=== PATIENT | female | born 1965 | race Caucasian/White ===

== ENCOUNTER 2019-07-30 10:27 | Outpatient (CLI) | payer OTHER, SELFPAY ==
[2019-07-30 10:39] LABS: Basophils Absolute Auto 0.04 K/mm3 (0.00-0.10); Basophils Percent Auto 0.6 % (0.0-1.0); Eosinophils Absolute Auto 0.25 K/mm3 (0.02-0.50); Eosinophils Percent Auto 3.6 % (1.0-6.0); Hematocrit 39.7 % (35.0-49.0); Hemoglobin 12.9 g/dL (12.0-15.0); Immature Granulocyte Absolute 0.02 K/mm3 (0.00-0.00); Immature Granulocyte Percent A 0.3 % (0.0-0.0); Lymphocytes Absolute Auto 1.59 K/mm3 (1.10-4.50); Lymphocytes Percent Auto 23.2 % (18.0-42.0); Mean Corpuscular HGB Conc 32.5 g/dL (32.0-36.0); Mean Corpuscular Hemoglobin 27.7 pg (27.0-31.0); Mean Corpuscular Volume 85.2 fL (78.0-102.0); Mean Platelet Volume 9.2 fl (9.2-11.8); Monocytes Absolute Auto 0.47 K/mm3 (0.10-0.90); Monocytes Percent Auto 6.9 % (2.0-11.0); Neutrophils Absolute Auto 4.5 K/mm3 (1.7-7.2); Neutrophils Percent Auto 65.4 % (50.0-70.0); Platelet Count Result 386 K/mm3 (150-420); Red Blood Count 4.66 M/mm3 (4.20-5.40); Red Cell Distribution Width 14.8 % (11.6-14.4); White Blood Count 6.9 K/mm3 (4.8-10.8)
[2019-07-30 11:31] LABS: Alanine Aminotransferase 54 U/L (14-59); Albumin Level 4.6 g/dL (3.4-5.0); Alkaline Phosphatase 190 U/L (46-116); Anion Gap 16.9 mmol/L (7-16); Aspartate Amino Transferase 38 U/L (15-37); Bilirubin,Total 0.5 mg/dL (0.00-1.00); Blood Urea Nitrogen 23 mg/dL (7-18); Calcium 9.3 mg/dL (8.5-10.1); Carbon Dioxide 23 mmol/L (21-32); Chloride 105 mmol/L (98-108); Cholesterol 178 mg/dL (0-200); Estimated Glomerular Filt Rate 43; Glucose 102 mg/dL (70-99); HDL Direct 58 mg/dL (40-60); LDL Cholesterol Calculated 93 mg/dL (<130); Osmolality Calculated 295 mOsm/kg (285-295); Potassium 3.9 mmol/L (3.5-5.1); Sodium 141 mmol/L (136-145); Total Protein 7.8 g/dL (6.4-8.2); Triglycerides 135 mg/dL (0-150)
[2019-07-30 12:37] LABS: Thyroid Stimulating Hormone Reflex 1.82 u/IU/mL (0.36-3.74)
[2019-08-04 04:48] LABS: Hepatitis C Signal to Cutoff 0.01 ratio (<1.00); Hepatitis C Virus Antibody Nonreactive (Nonreactive)
== END 2019-07-30 10:28 | disposition home or self-care (01) ==
LOC: CHSLAB 10:30
PROVIDERS: PCP Family Medicine; Visit Provider Family Medicine
DX: E78.5 Hyperlipidemia, unspecified (principal); E66.9 Obesity, unspecified; Z11.59 Encounter for screening for other viral diseases; F31.9 Bipolar disorder, unspecified
CPT/HCPCS: 36415; 80053; 80061; 84443; 85025

== ENCOUNTER 2020-09-12 12:17 | Outpatient (CLI) | payer OTHER, SELFPAY ==
--- NOTE | ~2020-09-12 | MM_ITS ---
EXAMINATION: MM screening [place] BI w luc HISTORY: Screening mammogram TECHNIQUE: Craniocaudal and mediolateral oblique 3-D tomosynthesis images were obtained and synthetic 2-D images were generated. CAD analysis was submitted and interpreted. COMPARISON: 05/06/2019, 04/08/2018 bilateral digital screening mammogram BREAST PARENCHYMAL COMPOSITION: There are scattered areas of fibroglandular density. FINDINGS: There are bilateral breast masses. Bilateral diagnostic mammography and bilateral breast ul trasound examination are recommended. IMPRESSION: 1. Bilateral breast masses 2. Bilateral diagnostic mammography and bilateral breast ultrasound examination are recommended BI-RADS Category 0: Incomplete: Needs additional imaging evaluation. Reviewed, dictated and finalized at location A.
== END 2020-09-12 12:18 | disposition home or self-care (01) ==
LOC: CHSIMG 12:18
PROVIDERS: PCP Nurse Practitioner Family; Visit Provider Nurse Practitioner Family
DX: Z12.31 Encounter for screening mammogram for malignant neoplasm of breast (principal)
CPT/HCPCS: 77063; 77067

== ENCOUNTER 2020-09-21 10:04 | Outpatient (CLI) | payer OTHER, SELFPAY ==
--- NOTE | ~2020-09-21 | MMUS_ITS ---
EXAMINATION: MM diagnostic mammo BI, US breast BI complete HISTORY: Bilateral breast masses reported on 09/12/2020 screening mammogram TECHNIQUE: Additional 3-D tomosynthesis images of both breasts were performed and synthetic 2-D image s were generated. CAD analysis was submitted and interpreted. High resolution complete bilateral [address]lyss[address] st ultrasound was performed. COMPARISON: 09/12/2020, 05/06/2019 bilateral digital screening mammogram examinations FINDINGS: MAMMOGRAPHIC FINDINGS: There is bilateral nodular appearing fibroglandular stroma which may obscure small masses. There are bilateral breast masses including the following: Stable approximately 7 mm nodular density in the lower inner quadrant of left breast with adjacent bi opsy marker; history of prior benign left breast biopsy given by patient. 6 mm circumscribed mass in the mid outer left breast 5 mm circumscribed opacity is noted in the outer mid right breast. 5-6 mm nodular density in the anterior right lower inner breast. ULTRASOUND: Right breast: 1:00 5 cm from nipple: 2.9 x 4 x 3.9 mm circumscribed hypoechoic lesion with central fatty density, l ikely a small intramammary lymph node 5:00 2 cm from nipple: 3.3 x 4.9 x 6.3 mm circumscribed parallel lesion without suspicious shadowing 9:00 8 cm from nipple: 5.9 x 3.8 x 5.9 mm circumscribed hypoechoic lesion with central fatty density, likely a benign intramammary lymph node Left breast: 12:00 2 cm from nipple: 6.3 by 7.6 x 3.5 mm circumscribed lesion with central fatty density, likely a benign intramammary lymph node 1:00 12 cm from nipple: 4.7 x 5.2 x 7 mm circumscribed lymph node 3:00 3 cm from nipple: 4.6 x 5.1 x 5.7 mm circumscribed hypoechoic lesion without internal vascularit y or posterior features 4:00 2 cm from nipple: 3.1 x 2.6 x 2.8 mm circumscribed parallel lesion, probably a benign lymph node 8:00 6 cm from nipple: 6.3 x 6.5 x 7.5 mm circumscribed hypoechoic solid lesion with some edge shadow ing, no internal vascularity IMPRESSION: 1. Probable benign bilateral breast masses 2. 6 month bilateral diagnostic mammography and bilateral breast ultrasound follow-up is recommended BI-RADS category 3, probably benign findings. Reviewed, dictated and finalized at location A. IMPRESSION: 1. Probable benign bilateral breast masses 2. 6 month bilateral diagnostic mammography and bilateral breast ultrasound fol low-up is recommended BI-RADS category 3, probably benign findings.
== END 2020-09-21 10:05 | disposition home or self-care (01) ==
LOC: CHSIMG 10:06
PROVIDERS: PCP Nurse Practitioner Family; Visit Provider Nurse Practitioner Family
DX: R92.8 Other abnormal and inconclusive findings on diagnostic imaging of breast (principal)
CPT/HCPCS: 76641; 77066

== ENCOUNTER 2021-06-12 15:04 | Outpatient (CLI) | payer OTHER, SELFPAY ==
[2021-06-12 16:40] LABS: Hemoglobin A1C 12.1 % (<5.7)
[2021-06-12 17:05] LABS: Alanine Aminotransferase 56 U/L (14-59); Albumin Level 3.9 g/dL (3.4-5.0); Alkaline Phosphatase 226 U/L (46-116); Anion Gap 15 mmol/L (8-16); Aspartate Amino Transferase 48 U/L (15-37); Bilirubin,Total 0.6 mg/dL (0.00-1.00); Blood Urea Nitrogen 14 mg/dL (7-18); Calcium 9.2 mg/dL (8.5-10.1); Carbon Dioxide 22 mmol/L (21-32); Chloride 100 mmol/L (98-108); Cholesterol 285 mg/dL (0-200); Estimated Glomerular Filt Rate 46; Free T3 2.98 pg/mL (2.18-3.98); Glucose 389 mg/dL (70-99); HDL Direct 39 mg/dL (40-60); LDL Cholesterol Calculated 175 mg/dL (<130); Osmolality Calculated 300 mOsm/kg (285-295); Potassium 4.1 mmol/L (3.5-5.1); Sodium 137 mmol/L (136-145); Thyroid Stimulating Hormone 2.22 uIU/mL (0.36-3.74); Total Protein 7.2 g/dL (6.4-8.2); Triglycerides 354 mg/dL (0-150); Vitamin B12 728 pg/mL (193-986)
[2021-06-16 04:58] LABS: Vitamin D 25 Hydroxy 28 ng/mL (30-100)
== END 2021-06-12 15:05 | disposition home or self-care (01) ==
LOC: CHSLAB 15:05
PROVIDERS: PCP Nurse Practitioner Family; Visit Provider Nurse Practitioner Family
DX: R63.1 Polydipsia (principal); R53.83 Other fatigue; E78.5 Hyperlipidemia, unspecified; Z79.899 Other long term (current) drug therapy
CPT/HCPCS: 36415; 80053; 80061; 82306; 82607; 83036; 84439; 84443; 84481

== ENCOUNTER 2021-06-13 16:46 | Outpatient (CLI) | payer OTHER, SELFPAY ==
--- NOTE | ~2021-06-13 | XR_ITS ---
EXAMINATION: XR wrist RT 2V DATE: 06/13/2021 17:15 INDICATION: Right wrist pain. TECHNIQUE: 2 views of right wrist were obtained. COMPARISON: None. FINDINGS: There is a nondisplaced fracture of radial styloid. There is moderate osteoarthritis of dis laureano radioulnar joint and mild osteoarthritis of first carpometacarpal joint. IMPRESSION: 1. Nondisplaced fracture of radial styloid. 2. Polyarticular osteoarthritis. Reviewed, dictated and finalized at location A. 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
== END 2021-06-13 16:47 | disposition home or self-care (01) ==
LOC: CHSIMG 16:47
PROVIDERS: PCP Nurse Practitioner Family; Visit Provider Nurse Practitioner Family
DX: M25.531 Pain in right wrist (principal)
CPT/HCPCS: 73100

== ENCOUNTER 2021-06-19 08:53 | Outpatient (CLI) | payer OTHER, SELFPAY ==
--- NOTE | ~2021-06-19 | MMUS_ITS ---
EXAMINATION: MM diagnostic [place] BI w luc, US breast BI limited HISTORY: Follow-up for probably benign bilateral breast masses TECHNIQUE: Craniocaudal, mediolateral, and mediolateral oblique 3-D tomosynthesis images of the natalee ts were performed and synthetic 2-D images were generated. CAD analysis was submitted and interpreted . High resolution limited bilateral breast ultrasound was performed. COMPARISON: 09/21/2020, 09/12/2020, 05/06/2019 BREAST PARENCHYMAL COMPOSITION: There are scattered areas of fibroglandular density. FINDINGS: MAMMOGRAPHIC FINDINGS: Bilateral breast masses are stable since 2019. There is no new suspicious mass, calcification, or arc hitectural distortion in either breast to suggest malignancy. ULTRASOUND: Right breast: There is a stable 6 mm x 3 mm oval, circumscribed, parallel, hypoechoic mass with no po sterior features or internal vascularity at the 5:00 location near the nipple. There is a there is a 5 mm cyst at the 1:00 location near the nipple. Additional sonographically detected right breast mass es on the prior examination are no longer identified. Left breast: A stable 8 mm x 6 mm hypoechoic mass at 8:00 location 7 cm from the nipple is consistent with the previously biopsied mass. Previously described sonographically detected masses in the upper outer quadrant of the breast are no longer identified. IMPRESSION: 1. Probably benign sonographically detected right breast mass at the 5:00 location near the nipple. 2. Recommend 6 month follow-up right diagnostic mammogram and ultrasound. BI-RADS category 3, probably benign findings. Reviewed, dictated and finalized at location A. NETWORK ARCHITECT IMPRESSION: 1. Probably benign sonographically detected right breast mass at the 5:00 locat ion near the nipple. 2. Recommend 6 month follow-up right diagnostic mammogram and ultrasound. BI-RADS category 3, probably benign findings.
== END 2021-06-19 08:54 | disposition home or self-care (01) ==
LOC: CHSIMG 08:54
PROVIDERS: PCP Nurse Practitioner Family; Visit Provider Nurse Practitioner Family
DX: R92.8 Other abnormal and inconclusive findings on diagnostic imaging of breast (principal)
CPT/HCPCS: 76642; 77062; 77066; G0279

== ENCOUNTER 2021-11-03 17:28 | Emergency (ER) | payer OTHER, SELFPAY ==
--- NOTE | ~2021-11-03 | XR_ITS ---
EXAM: XR hand LT min 3V DATE: 11/03/2021 18:36 HISTORY: fall today, pain and large swelling to 3rd MCP area . COMPARISON: 05/30/2017. FINDINGS: Decreased mineralization. Oblique mildly displaced fracture of the distal aspect of the th ird metacarpal, without definite intra-articular extension. No lytic or blastic lesion. Osteoarthriti s in the fingers and trapeziometacarpal joint. No erosion or periosteal change. Dorsal soft tissue sw elling. IMPRESSION: Mildly displaced oblique fracture of the distal aspect of the third metacarpal. Reviewed, dictated and finalized at location K.
[2021-11-03 17:40] VITALS: BP 129/89; PULSE 69; RESP 20; TEMP 36.7; O2SAT 97
--- NOTE | 2021-11-03 18:22 | ED.GENADULT ---
HPI - General Adult General Chief complaint: Extremity Injury, Upper Stated complaint: fell in the yard, L hand injury Time Seen by Provider: 11/03/21 18:22 History of Present Illness HPI narrative: The patient is a 56-year-old woman who fell in her yard, landing on her left hand resulting in a flexion injury of the left hand. She complains of mild to moderate pain at the dorsal aspect of the middle aspect of the left hand at the 3rd and 4th metacarpal bones with some swelling to the site. She has not taken any pain medications prior to arrival. No other injuries such as neck pain or back pain or headache or chest pain or pain in other extremities. Related Data Home Medications Medication Instructions Recorded Confirmed fluoxetine 40 mg capsule 40 mg PO DAILY 04/16/19 06/18/21 clonidine HCl 0.1 mg tablet 0.1 mg PO BID PRN 06/12/21 06/18/21 olanzapine 10 mg tablet 5 mg PO BID 06/12/21 06/18/21 Allergies Allergy/AdvReac Type Severity Reaction Status Date / Time No Known Allergies Allergy Verified 07/16/21 09:43 Review of Systems Review of Systems: All systems reviewed & are unremarkable except as noted in HPI and below Constitutional: Constitutional: Reports no additional constitutional complaints, Denies anorexia, Denies body ache(s), Denies chills, Denies excessive sweating, Denies fatigue, Denies fever(s), Denies frequent falls, Denies headache(s), Denies malaise and Denies poor appetite Eyes: Eyes: Reports no additional eye complaints, Denies blurry vision, Denies change in vision, Denies irritation, Denies itchy eyes and Denies photophobia ENT: Reports system reviewed and no additional complaints, except as documented, Reports Normal hearing present, Denies change in voice, Denies dysphagia, Denies vertigo, Denies dizziness, Denies ear discharge, Denies headache(s), Denies hearing loss, Denies hoarseness, Denies nasal congestion, Denies neck pain, Denies sinus pressure, Denies sore throat and Denies throat swelling Cardiovascular: Cardiovascular: Reports no additional cardiovascular complaints, Denies chest pain, Denies syncope, Denies rapid heart rate, Denies irregular heart rhythm, Denies leg edema, Denies dyspnea and Denies slow heart rate Respiratory: Respiratory: Reports no additional respiratory complaints, Denies cough, Denies dyspnea, Denies stridor and Denies wheezing Gastrointestinal: Gastrointestinal: Reports no additional gastrointestinal complaints, Denies abdominal pain, Denies melena, Denies hematochezia, Denies dysphagia, Denies diarrhea, Denies nausea and Denies vomiting Genitourinary: Genitourinary: Denies hematuria, Denies urinary frequency, Denies dysuria, Denies flank pain and Denies urinary urgency Musculoskeletal: Musculoskeletal: Reports no additional musculoskeletal complaints, Denies abnormal gait, Denies back pain, Denies myalgias, Reports arthralgias (of the left hand at the MCP joints 3rd and 4th), Reports joint swelling (of the left hand at the MCP joints 3rd and 4th), Reports limited range of motion (of the left hand at the MCP joints 3rd and 4th), Denies muscle cramps, Denies muscle weakness, Denies neck pain and Denies numbness Integumentary/Breasts: Skin/Breast: Reports system reviewed and no additional complaints, except as docu, Denies breast pain, Denies change in pigmentation, Denies pruritus, Denies erythema and Denies wounds Neurologic: Reports system reviewed and no additional complaints, except as documented, Reports Normal hearing present, Denies Abnormal speech present, Denies abnormal gait, Denies confusion, Denies vertigo, Denies dizziness, Denies syncope, Denies frequent falls, Denies headache(s), Denies focal weakness, Denies numbness and Denies paresthesias Psychiatric: Psychiatric: Reports no additional psychiatric complaints and Denies confusion Endocrine: Endocrine: Reports no additional endocrine complaints, Denies cold intolerance, Denies excessive sweating, Denies fatigue and De
[2021-11-03] MEDS: ACETAMINOPHEN 325 MG TABLET 975 MG PO (19:06)
[2021-11-03] MEDS: IBUPROFEN 400 MG TABLET 800 MG PO (19:07)
--- NOTE | 2021-11-03 19:09 | PC.NURSE ---
1900 report to chandler white. no questions or concerns voiced at this time
== END 2021-11-03 19:36 | disposition home or self-care (01) ==
PROVIDERS: Emergency Provider Emergency Medicine; PCP Nurse Practitioner Family
DX: S62.393A Other fracture of third metacarpal bone, left hand, initial encounter for closed fracture (principal); W19.XXXA Unspecified fall, initial encounter
CPT/HCPCS: 29125; 73130; 99284; A9270

== ENCOUNTER 2021-12-17 10:06 | Outpatient (CLI) | payer MEDICARE, SELFPAY ==
--- NOTE | ~2021-12-17 | MMUS_ITS ---
EXAMINATION: MM diagnostic [place] RT w luc, US breast RT complete HISTORY: Six-month follow-up of right breast mass 5:00 near nipple TECHNIQUE: ML, MLO and CC full field and spot 3-D tomosynthesis images of the right breast were perfo rmed and synthetic 2-D images were generated. CAD analysis was submitted and interpreted. High resolu tion complete right breast ultrasound including all 4 quadrants and subareolar area was performed. COMPARISON: 06/19/2021 bilateral diagnostic mammography and bilateral Limited breast ultrasound examin ation 09/21/2020 bilateral diagnostic mammography and bilateral complete breast ultrasound examination 09/12/2020 bilateral screening mammogram 05/06/2019 bilateral screening mammogram FINDINGS: MAMMOGRAPHIC FINDINGS: A new approximately 5 x 7.5 mm opacity is noted deep in the posterior aspect of the lower inner left breast approximately 10.7 cm deep to the nipple. The margins appear circumscribed. Six-month follow- up diagnostic right mammogram is recommended. Approximately 5.5 mm benign-appearing circumscribed probable lymph node is noted in the upper outer r ight breast at mid depth. Approximately 3.7 x 6 mm circumscribed opacity in the lower medial central right breast. Somewhat nodular appearing fibroglandular stroma may obscure additional small masses. Complete right breast ultrasound examination was performed. ULTRASOUND: 3:00 near nipple: Parallel circumscribed 5.4 x 5.6 x 3.6 mm solid lesion without internal vascularity or suspicious shadowing, most likely benign. 1:00 - 2:00 10 cm from nipple: 3.7 x 4.5 x 2.8 mm hypoechoic lesion with suggestion of fatty hilus, v elina possibly a small lymph node. 6 month follow-up ultrasound imaging is recommended. No definite sonographic correlate was identified by the technologist for the very posterior lower inn er quadrant approximately 5 x 7.5 mm circumscribed opacity. 6 month diagnostic mammogram and ultrasou nd follow-up with attention to this area are recommended. IMPRESSION: 1. Probable benign mammographic and ultrasound findings; 2. 6 month diagnostic right mammogram and right breast ultrasound follow-up are recommended BI-RADS Category 0: Incomplete: Needs additional imaging evaluation. Reviewed, dictated and finalized at location A. IMPRESSION: 1. Probable benign mammographic and ultrasound findings; 2. 6 month diagnostic right mammogram and right breast ultrasound follow-up are recommended BI-RADS Category 0: Incomplete: Needs additional imaging evaluation.
== END 2021-12-17 10:07 | disposition home or self-care (01) ==
LOC: CHSIMG 10:08
PROVIDERS: PCP Family Medicine; Visit Provider Nurse Practitioner Family
DX: R92.8 Other abnormal and inconclusive findings on diagnostic imaging of breast (principal)
CPT/HCPCS: 76641; 77061; 77065; G0279

== ENCOUNTER 2022-06-20 09:47 | Outpatient (CLI) | payer MEDICARE, SELFPAY ==
--- NOTE | ~2022-06-20 | MMUS_ITS ---
EXAMINATION: MM diagnostic [place] BI w luc, US breast RT limited HISTORY: Six-month follow-up for probably benign right breast masses TECHNIQUE: Craniocaudal, mediolateral, and mediolateral oblique 3-D tomosynthesis images of the breas ts were performed and synthetic 2-D images were generated. CAD analysis was submitted and interpreted . High resolution limited right breast ultrasound was performed. COMPARISON: 12/17/2021, 06/19/2021, 09/21/2020, 09/12/2020, 05/06/2019 BREAST PARENCHYMAL COMPOSITION: There are scattered areas of fibroglandular density. FINDINGS: MAMMOGRAPHIC FINDINGS: No suspicious mass, calcification, or architectural distortion are identified in either breast to sug gest malignancy. There has been no suspicious interval change. Bilateral breast masses are stable sin 2018, consistent with benign findings. ULTRASOUND: The previously described sonographically detected right breast masses are not identified. No suspicio us cystic or solid mass is seen. IMPRESSION: 1. No mammographic or sonographic evidence of malignancy. 2. Recommend routine screening mammography in one year. BI-RADS Category 2: Benign finding(s). Reviewed, dictated and finalized at location A. CHECKER IMPRESSION: 1. No mammographic or sonographic evidence of malignancy. 2. Recommend routine screening mammography in one year. BI-RADS Category 2: Benign finding(s).
== END 2022-06-20 09:48 | disposition home or self-care (01) ==
LOC: CHSIMG 09:49
PROVIDERS: PCP Family Medicine; Visit Provider Family Medicine
DX: R92.8 Other abnormal and inconclusive findings on diagnostic imaging of breast (principal)
CPT/HCPCS: 76642; 77062; 77066; G0279

== ENCOUNTER 2023-01-14 14:06 | Outpatient (CLI) | payer MEDICARE, SELFPAY ==
[2023-01-14 14:19] LABS: Basophils Absolute Auto 0.04 K/mm3 (0.00-0.10); Basophils Percent Auto 0.6 % (0.0-1.0); Eosinophils Absolute Auto 0.26 K/mm3 (0.02-0.50); Eosinophils Percent Auto 4.1 % (1.0-6.0); Hematocrit 35.4 % (35.0-49.0); Hemoglobin 11.3 g/dL (12.0-15.0); Immature Granulocyte Absolute 0.03 K/mm3 (0.00-0.00); Immature Granulocyte Percent A 0.5 % (0.0-0.0); Lymphocytes Absolute Auto 2.03 K/mm3 (1.10-4.50); Lymphocytes Percent Auto 31.7 % (18.0-42.0); Mean Corpuscular HGB Conc 31.9 g/dL (32.0-36.0); Mean Corpuscular Hemoglobin 28.5 pg (27.0-31.0); Mean Corpuscular Volume 89.4 fL (78.0-102.0); Mean Platelet Volume 9.2 fl (9.2-11.8); Monocytes Absolute Auto 0.53 K/mm3 (0.10-0.90); Monocytes Percent Auto 8.3 % (2.0-11.0); Neutrophils Absolute Auto 3.5 K/mm3 (1.7-7.2); Neutrophils Percent Auto 54.8 % (50.0-70.0); Platelet Count Result 308 K/mm3 (150-420); Red Blood Count 3.96 M/mm3 (4.20-5.40); Red Cell Distribution Width 14.5 % (11.6-14.4); White Blood Count 6.4 K/mm3 (4.8-10.8)
[2023-01-14 14:36] LABS: Hemoglobin A1C 7.9 % (<5.7)
[2023-01-14 15:21] LABS: Alanine Aminotransferase 46 U/L (14-59); Albumin Level 3.7 g/dL (3.4-5.0); Alkaline Phosphatase 191 U/L (46-116); Anion Gap 12 mmol/L (8-16); Aspartate Amino Transferase 30 U/L (15-37); Bilirubin Direct 0.1 mg/dL (0-0.2); Bilirubin,Total 0.6 mg/dL (0.00-1.00); Blood Urea Nitrogen 17 mg/dL (7-18); Carbon Dioxide 26 mmol/L (21-32); Chloride 105 mmol/L (98-108); Cholesterol 300 mg/dL (0-200); Estimated Glomerular Filt Rate 50; Glucose 111 mg/dL (70-99); HDL Direct 64 mg/dL (40-60); LDL Cholesterol Calculated 177 mg/dL (<130); Osmolality Calculated 298 mOsm/kg (285-295); Potassium 4.2 mmol/L (3.5-5.1); Sodium 143 mmol/L (136-145); Total Protein 6.9 g/dL (6.4-8.2); Triglycerides 293 mg/dL (0-150); Vitamin B12 269 pg/mL (193-986)
[2023-01-14 15:39] LABS: Folic Acid > 20.0 ng/mL (8.6->20)
[2023-01-18 13:39] LABS: Vitamin D 25 Hydroxy 25 ng/mL (30-100)
== END 2023-01-14 14:07 | disposition home or self-care (01) ==
LOC: CHSLAB 14:08
PROVIDERS: PCP Family Medicine; Visit Provider Family Medicine
DX: E11.9 Type 2 diabetes mellitus without complications (principal); E55.9 Vitamin D deficiency, unspecified; E78.5 Hyperlipidemia, unspecified
CPT/HCPCS: 36415; 80053; 80061; 82248; 82306; 82607; 82746; 83036; 85025

== ENCOUNTER 2023-04-01 14:54 | Emergency (ER) | payer MEDICARE, SELFPAY ==
[2023-04-01] VITALS (7 sets, daily range): BP systolic 122–141; BP diastolic 69–98; PULSE 94–102; RESP 17; TEMP 36.2–36.4; O2SAT 97–100
--- NOTE | ~2023-04-01 | XR_ITS ---
EXAMINATION: XR elbow RT min 3V DATE: 04/01/2023 15:12 INDICATION: Posterior right elbow pain and limited range of motion with laceration post fall TECHNIQUE: Anteroposterior, two oblique and lateral views of the right elbow were obtained. COMPARISON: None. FINDINGS: Transverse intra-articular fracture fracture of the proximal right ulna across the base of the olecra non. There is 2-3 cm proximal distraction of the olecranon fragment which is also rotated across the posterior margin of the humeral condyles as well as with extension of the arm with the forearm positi oned in flexion. No other fractures identified. Osteoarthritis at the right elbow with at least moder ate severity at the radiocapitellar articulation. The fracture is positioned deep to what appears to be blood soaked bandaging material likely at the site of a reported laceration there is some increase d lucency in the soft tissues posterior to the metaphyseal region of the proximal ulna suggesting thi s may represent an open/compound fracture. IMPRESSION: 1. 2-3 cm proximal distraction of a transverse intra-articular fracture across the base of the olecra non which in addition may be open/compound. 2. Moderate osteoarthritis at the right elbow. 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 2-3 cm proximal distraction of a transverse intra-articular fracture across the base of the olecranon which in addition may be open/compound. 2. Moderate osteoarthritis at the right elbow.
--- NOTE | 2023-04-01 15:25 | ED.UPPEXIN ---
HPI - Extremity Injury (Upper) General Chief Complaint: Extremity Injury, Upper Stated Complaint: right elbow Time Seen by Provider: 04/01/23 14:56 Source: patient and family Mode of arrival: ambulatory Limitations: no limitations History of Present Illness HPI narrative: 57 YEARS OLD WHITE FEMALE MISSED LAST STEP AND THEN FELL ON THE RIGHT SIDE OF HER BODY, COMPLAINING OF RIGHT ELBOW PAIN AND LACERATION, DENIES ANY OTHER INJURIES. PATIENT IS NOT ON ANTI-PLATELET OR ANTICOAGULANT MEDICATION. PATIENT CAME TO THE ED BY PRIVATE CAR. UNKNOWN LAST TETANUS Related Data Home Medications Medication Instructions Recorded Confirmed fluoxetine 40 mg capsule 40 mg PO DAILY 04/16/19 12/18/21 olanzapine 10 mg tablet 5 mg PO BID 06/12/21 12/18/21 Allergies Allergy/AdvReac Type Severity Reaction Status Date / Time No Known Allergies Allergy Verified 04/01/23 17:26 Review of Systems Review of Systems: All systems reviewed & are unremarkable except as noted in HPI and below PMFSH Past Medical History Medical History Bipolar disorder Breast mass seen on mammogram CAIO (generalized anxiety disorder) Hyperlipidemia Surgical History Surgical History History of carpal tunnel surgery Left Side 2010 Family History Family History Father Unknown family medical history Mother Endometrial cancer Other Asthma Depression Family history of arthritis Family history of breast cancer Family history of high cholesterol Family history of type 2 diabetes mellitus Hypertension Social History Social History Smoking status: Never smoker Alcohol intake: never Substance use: never Living arrangements: alone Additional living arrangements comments: . Occupation/Education: retired Gender identity (if verbalized by the patient): Female Exam Narrative: GENERAL APPEARANCE: WELL-DEVELOPED, WELL-NOURISHED SKIN: NORMAL COLOR HEAD: NORMOCEPHALIC, NONTRAUMATIC EYES: CLEAR CONJUNCTIVA ENT: OROPHARYNX NORMAL, EARS NORMAL, NOSE NORMAL NECK: SUPPLE, NONTENDER CHEST AND RESPIRATORY: AIRWAY PATENT, NO RESPIRATORY DISTRESS, NO ACCESSORY MUSCLE USE HEART: REGULAR RATE/RHYTHM ABDOMEN: SOFT, NONTENDER, NO ORGANOMEGALY, QUIET BOWEL SOUNDS VASCULAR: NORMAL PERIPHERAL PULSES, NORMAL CAPILLARY REFILL. MUSCULOSKELETAL: RIGHT ELBOW EXAM SHOWED 2 CM LACERATION POSTERIORLY, DIFFUSE TENDERNESS, SWELLING AND DEFORMITY SEVERELY LIMITED RANGE OF MOTION NEUROLOGIC: ALERT AND ORIENTED ?3, HEALTH CARE / MEDICAL JOB TITLES IS NORMAL TESTED, NO GROSS MOTOR DEFICIT Course Consultations Consultation #1: DR. HERNANDEZ ACCEPTED PATIENT TRANSFER ORTHOPEDIC AT [facility] Date: 04/01/23 Time: 15:45 Vital Signs Vital signs: Vital Signs Temperature 36.2 C L 04/01/23 14:54 Pulse Rate 95 04/01/23 14:54 Respiratory Rate 17 04/01/23 14:54 Blood Pressure 131/69 04/01/23 14:54 Pulse Oximetry 99 04/01/23 14:54 Oxygen Delivery Room Air 04/01/23 14:54 Temperature 36.4 C L 04/01/23 17:03 Pulse Rate 95 04/01/23 17:03 Respiratory Rate 17 04/01/23 17:03 Blood Pressure 136/94 H 04/01/23 17:03 Pulse Oximetry 97 04/01/23 17:03 Oxygen Delivery Room Air 04/01/23 17:03 MDM - Extremity Injury (Upper) MDM Narrative Medical decision making narrative: PATIENT MISSED LAST STEP AND FELL FROM STANDING POSITION, RIGHT ELBOW INJURY, X-RAY SHOWED OLECRANON COMMINUTED FRACTURE PATIENT IS NOT ON ANTI-PLATELET OR ANTICOAGULANT MEDICATION IN THE
[2023-04-01] MEDS: ceFAZolin 2 GM/NS 50 ML 2 GM/50 ML BAG IVPB (15:37)
[2023-04-01] MEDS: ONDANSETRON INJ 4 MG/2 ML VIAL IV PUSH (15:39)
[2023-04-01] MEDS: HYDROmorphone HCL INJ (*CRX) 2 MG/ML VIAL 0.5 MG IV PUSH (15:40)
[2023-04-01] MEDS: TETANUS,DIPHTHERIA,AC PERTUSSIS ADULT 0.5 ML (ADACEL) IM (15:52)
[2023-04-01] MEDS: SODIUM CHLORIDE 0.9% IV 1,000 ML 500 ML IV CONT (16:26)
== END 2023-04-01 17:03 | disposition short-term general hospital (02) ==
PROVIDERS: Emergency Provider Emergency Medicine; PCP Family Medicine
DX: S52.031B Displaced fracture of olecranon process with intraarticular extension of right ulna, initial encounter for open fracture type I or II (principal); E78.5 Hyperlipidemia, unspecified; Z23 Encounter for immunization; W10.9XXA Fall (on) (from) unspecified stairs and steps, initial encounter
CPT/HCPCS: 73080; 90471; 90715; 96361; 96365; 96375; 99285; A4565; J0690; J1170; J2405; J7030

== ENCOUNTER 2023-04-10 18:31 | Emergency (ER) | payer MEDICARE, SELFPAY ==
[2023-04-10 18:31] VITALS: BP 122/70; PULSE 96; RESP 20; TEMP 36.7; O2SAT 98
--- NOTE | 2023-04-10 18:45 | ED.UPPEXIN ---
HPI - Extremity Injury (Upper) General Stated Complaint: right elbow pain Time Seen by Provider: 04/10/23 18:44 Source: patient and family Mode of arrival: ambulatory Limitations: no limitations History of Present Illness HPI narrative: this is a 58-year-old female that had an open fracture of her right elbow approximately 1 week ago has been following with Orthopedic surgery, currently has ludy in the elbow area on the right and she was playing with her cat and tried to get up and leaned on the right elbow causing pain, currently pain level is doing okay there is no drainage of the incision site no redness there is some mild swelling and does have a follow-up with her surgeon on the 21 of April. complaint: injury to: right Onset (ago): week(s) Handedness: right Place: home Severity: mild Related Data Home Medications Medication Instructions Recorded Confirmed fluoxetine 40 mg capsule 40 mg PO DAILY 04/16/19 12/18/21 olanzapine 10 mg tablet 5 mg PO BID 06/12/21 12/18/21 Allergies Allergy/AdvReac Type Severity Reaction Status Date / Time No Known Allergies Allergy Verified 04/01/23 17:26 Review of Systems Review of Systems: All systems reviewed & are unremarkable except as noted in HPI and below PMFSH Past Medical History Medical History Bipolar disorder Breast mass seen on mammogram CAIO (generalized anxiety disorder) Hyperlipidemia Surgical History Surgical History History of carpal tunnel surgery Left Side 2009 Family History Family History Father Unknown family medical history Mother Endometrial cancer Other Asthma Depression Family history of arthritis Family history of breast cancer Family history of high cholesterol Family history of type 2 diabetes mellitus Hypertension Social History Social History Smoking status: Never smoker Alcohol intake: never Substance use: never Living arrangements: alone Additional living arrangements comments: . Occupation/Education: retired Gender identity (if verbalized by the patient): Female Exam Const: General: healthy appearing and no acute distress Nutritional Appearance: well nourished Orientation/consciousness: patient oriented x3 Limitations: no limitations Resp: Effort & Inspection: normal respiratory effort Auscultation: clear to auscultation bilaterally Cardio: Rate: regular rate Rhythm: regular rhythm GI: GI Palp: Yes Soft to palpation Back/Spine/Pelvis: Back: no CVA tenderness Skin: General skin exam: normal color Rashes: no rashes Wounds: wounds noted Neuro: General: patient oriented x3 and moves all extremities Extrem: Other: Right elbow with ludy the area is swollen but there is no drainage no warmth and there is some mild tenderness. Course Course Emergency Course: Dressing was removed the wound was evaluated ludy intact elbow visualized and there is no current drainage no warmth there is some mild tenderness, advised patient to continue with her current medical regimen and to follow with her surgeon as scheduled. Vital Signs Vital signs: Vital Signs Temperature 36.7 C 04/10/23 18:31 Pulse Rate 96 04/10/23 18:31 Respiratory Rate 20 04/10/23 18:31 Blood Pressure 122/70 04/10/23 18:31 Pulse Oximetry 98 04/10/23 18:31 Oxygen Delivery Room Air 04/10/23 18:31 Temperature 36.7 C 04/10/23 18:31 Pulse Rate 96 04/10/23 18:31 Respiratory Rate 20 04/10/23 18:31 Blood Pressure 122/70 04/10/23 18:31 Pulse Oximetry 98 04/10/23 18:31 Oxygen Delivery Room Air 04/10/23 18:31 Critical Care Time Critical Care Time Critical Care Time: No Discharge Plan Discharge Clinical Impression: Elbow pain, right
== END 2023-04-10 18:58 | disposition home or self-care (01) ==
LOC: CHSED 18:53
PROVIDERS: Emergency Provider Emergency Medicine; PCP Family Medicine
DX: M25.521 Pain in right elbow (principal); E78.5 Hyperlipidemia, unspecified
CPT/HCPCS: 99282

== ENCOUNTER 2023-07-04 12:48 | Outpatient (CLI) | payer MEDICARE, SELFPAY ==
--- NOTE | ~2023-07-04 | XR_ITS ---
EXAMINATION: XR hip LT min 2V DATE: 07/04/2023 14:53 INDICATION: Left hip pain. Low back pain. TECHNIQUE: 2 views of left hip were obtained. COMPARISON: None. FINDINGS: Bone alignment is normal. No fracture. There is mild left hip osteoarthritis. IMPRESSION: 1. Mild left hip osteoarthritis. Reviewed, dictated and finalized at location E. 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
[2023-07-04 13:10] LABS: Appearance Urine Clear (Clear); Bilirubin Urine Negative (Negative); Blood Urine Negative (Negative); Color Urine Yellow (Yellow); Glucose Urine UA 3+ (Negative); Ketones Urine Trace (Negative); Leukocyte Esterase Ur Negative (Negative); Nitrate Urine Negative (Negative); Protein Urine Negative (Negative); Specific Grav Ur 1.025 (1.010-1.020)
[2023-07-04 13:14] LABS: Add Urine Microscopic? YES; RBC Urine 0-2 /hpf (0-2); WBC Urine None seen /hpf (0-3)
[2023-07-04 13:15] LABS: Bacteria Urine Trace /hpf; Mucus Urine Few /lpf; Squamous Epithelial Cell Urine Moderate /hpf (Few)
== END 2023-07-04 12:49 | disposition home or self-care (01) ==
PROVIDERS: PCP Family Medicine; Visit Provider Family Medicine
DX: R35.0 Frequency of micturition (principal); M54.50 Low back pain, unspecified; M16.12 Unilateral primary osteoarthritis, left hip
CPT/HCPCS: 73502; 81001; 87086

== ENCOUNTER 2023-07-10 13:53 | Outpatient (CLI) | payer MEDICARE, SELFPAY ==
--- NOTE | ~2023-07-10 | MM_ITS ---
EXAMINATION: MM screening [place] BI w luc HISTORY: Screening mammogram, family history of breast cancer in her sister. TECHNIQUE: Craniocaudal and mediolateral oblique 3-D tomosynthesis images were obtained and synthetic 2-D images were generated. CAD analysis was submitted and interpreted. COMPARISON: 06/20/2022, 12/17/2021, 06/19/2021, 09/21/2020, 09/12/2020 BREAST PARENCHYMAL COMPOSITION: There are scattered areas of fibroglandular density. FINDINGS: No suspicious mass, calcification, or architectural distortion are identified in either ranjan ast to suggest malignancy. There has been no suspicious interval change. IMPRESSION: 1. No mammographic evidence of malignancy. 2. Recommend routine screening mammography in one year. BI-RADS Category 1: Negative Reviewed, dictated and finalized at location A. TENNIS COACH
== END 2023-07-10 13:54 | disposition home or self-care (01) ==
LOC: CHSIMG 13:54
PROVIDERS: PCP Family Medicine; Visit Provider Family Medicine
DX: Z12.31 Encounter for screening mammogram for malignant neoplasm of breast (principal)
CPT/HCPCS: 77063; 77067

== ENCOUNTER 2023-07-17 10:12 | Outpatient (CLI) | payer MEDICARE, SELFPAY ==
--- NOTE | ~2023-07-17 | XR_ITS ---
EXAMINATION: XR sacroiliac joints min 3V INDICATION: Bilateral hip pain TECHNIQUE: Three views of the sacroiliac joints are obtained. COMPARISON: None available FINDINGS: Bone alignment is normal. There is no fracture. No abnormal erosion or sclerosis of the sac roiliac joints identified. The soft tissues are unremarkable. Moderate lower lumbar spondylosis is no eunice. IMPRESSION: 1. No acute osseous abnormality. Reviewed, dictated and finalized at location L. MAN CLERK
--- NOTE | ~2023-07-17 | XR_ITS ---
AP view of the pelvis and AP and lateral views of the left hip Clinical history: Pain Findings: No acute fracture or dislocation is seen. Osseous alignment is anatomic. Bilateral hip and SI joint spaces are preserved. Soft tissues are unremarkable. Impression: No significant abnormality is seen. Reviewed, dictated and finalized at [facility]. OLETTERING MACHINE OPERATOR Impression: No significant abnormality is seen.
== END 2023-07-17 10:13 | disposition home or self-care (01) ==
LOC: CHSIMG 10:15
PROVIDERS: PCP Family Medicine; Visit Provider Family Medicine
DX: M25.552 Pain in left hip (principal)
CPT/HCPCS: 72202; 73502

== ENCOUNTER 2023-09-18 14:04 | Outpatient (CLI) | payer MEDICARE, SELFPAY ==
--- NOTE | ~2023-09-18 | XR_ITS ---
Left Hand Technique: PA, oblique, and lateral views were obtained. Clinical History: Osteoarthritis Findings: No acute fracture or dislocation is seen. Old, healed fracture deformity of third metacarpa l noted. There is mild to moderate degenerative change of the interphalangeal joint of the thumb and the second DIP joint. There is moderate to advanced degenerative change of the first CMC joint. There is mild degenerative change of the third DIP joint. Soft tissues are unremarkable. Impression: Polyarticular osteoarthritis, as detailed above. Reviewed, dictated and finalized at location M. Impression: Polyarticular osteoarthritis, as detailed above.
== END 2023-09-18 14:05 | disposition home or self-care (01) ==
LOC: CHSIMG 14:05
PROVIDERS: PCP Family Medicine; Visit Provider Family Medicine
DX: M19.042 Primary osteoarthritis, left hand (principal)
CPT/HCPCS: 73130

== ENCOUNTER 2024-01-27 15:25 | Emergency (ER) | payer MEDICARE, SELFPAY ==
--- NOTE | ~2024-01-27 | XR_ITS ---
EXAMINATION: XR shoulder LT min 2V DATE: 01/27/2024 15:43 INDICATION: Left shoulder pain. TECHNIQUE: 4 views of left shoulder were obtained. COMPARISON: None. FINDINGS: Alignment is normal. No fracture. Glenohumeral joint is normal. There is severe acromioclav icular joint osteoarthritis. IMPRESSION: 1. Severe left acromioclavicular joint osteoarthritis. Reviewed, dictated and finalized at location A.
[2024-01-27 15:25] VITALS: BP 124/67; PULSE 91; RESP 18; TEMP 37.1; O2SAT 99
--- NOTE | 2024-01-27 15:36 | ED.UPPEXIN ---
HPI - Extremity Injury (Upper) General Chief Complaint: Extremity Injury, Upper Stated Complaint: left shoulder pain Time Seen by Provider: 01/27/24 15:30 Source: patient Mode of arrival: ambulatory Limitations: no limitations History of Present Illness HPI narrative: Patient is a 58-year-old female with left shoulder pain. There was no definite injury except a fall last week to the right side. She has been having pain for the past week in the left shoulder. MD complaint: injury to: left and shoulder Onset (ago): week(s) (1) Other Extremity Injury: Left: shoulder Other injuries: none Place: home and outdoors Severity: moderate Severity scale (1-10): 5 Relieving factors: none Exacerbating factors: movement of extremity Context: injury ( Fell onto the right side last week) Associated symptoms: denies other symptoms Related Data Home Medications Medication Instructions Recorded Confirmed fluoxetine 40 mg capsule 40 mg PO DAILY 04/16/19 04/10/23 olanzapine 10 mg tablet 5 mg PO BID 06/12/21 04/10/23 Allergies Allergy/AdvReac Type Severity Reaction Status Date / Time No Known Allergies Allergy Verified 11/05/23 07:15 Review of Systems Review of Systems: All systems reviewed & are unremarkable except as noted in HPI and below Constitutional: Constitutional: Reports no additional constitutional complaints Eyes: Eyes: Reports no additional eye complaints ENT: Reports system reviewed and no additional complaints, except as documented Cardiovascular: Cardiovascular: Reports no additional cardiovascular complaints Respiratory: Respiratory: Reports no additional respiratory complaints Gastrointestinal: Gastrointestinal: Reports no additional gastrointestinal complaints Genitourinary: Genitourinary: Reports no additional female genitourinary complaints Musculoskeletal: Musculoskeletal: Reports no additional musculoskeletal complaints Integumentary/Breasts: Skin/Breast: Reports system reviewed and no additional complaints, except as docu Neurologic: Reports system reviewed and no additional complaints, except as documented Psychiatric: Psychiatric: Reports no additional psychiatric complaints Endocrine: Endocrine: Reports no additional endocrine complaints Hematologic/Lymphatic: Hematologic/Lymphatic: Reports no additional hematologic/lymphatic complaints Allergic/Immunologic: Allergic/Immunologic: Reports no additional allergic/immunologic complaints PMFSH Past Medical History Medical History Bipolar disorder Breast mass seen on mammogram CAIO (generalized anxiety disorder) Hyperlipidemia Surgical History Surgical History History of carpal tunnel surgery Left Side 2009 Family History Family History Father Unknown family medical history Mother Endometrial cancer Other Asthma Depression Family history of arthritis Family history of breast cancer Family history of high cholesterol Family history of type 2 diabetes mellitus Hypertension Social History Social History Smoking status: Never smoker Alcohol intake: never Substance use: never Living arrangements: alone Additional living arrangements comments: . Occupation/Education: retired Gender identity (if verbalized by the patient): Female Exam Const: General: healthy appearing Nutritional Appearance: well nourished Orientation/consciousness: patient oriented x3 HENMT: Head: normal to inspection Ears: external ears normal Face/Nose/Sinus: Normal external nose present Eyes: Conjunctivae: conjunctivae normal Pupils: Equal, round and reactive pupils present EOM: EOMs intact bilaterally Neck: Neck: normal visual inspection Chest: Chest palpation & inspection: normal inspection of the
[2024-01-27 16:15] VITALS: BP 119/66; PULSE 80; RESP 18; O2SAT 97
== END 2024-01-27 16:15 | disposition home or self-care (01) ==
PROVIDERS: Emergency Provider Emergency Medicine; PCP Family Medicine
DX: M75.52 Bursitis of left shoulder (principal); E78.5 Hyperlipidemia, unspecified
CPT/HCPCS: 73030; 99283

== ENCOUNTER 2024-04-15 09:33 | Outpatient (CLI) | payer MEDICARE, SELFPAY ==
--- NOTE | ~2024-04-15 | MR_ITS ---
EXAMINATION: MR shoulder LT wo con DATE: 04/15/2024 10:35 INDICATION: Left shoulder pain. TECHNIQUE: Magnetic resonance imaging (MRI) of the left shoulder was performed without intravenous co ntrast. Sequences included axial PD-weighted FS FSE, coronal oblique PD-weighted FS FSE and T2-weight ed FS FSE, and sagittal oblique T2-weighted FS FSE and T1-weighted FSE. COMPARISON: Left shoulder radiographs 01/27/2024 FINDINGS: Coracoacromial arch: The acromion undersurface is curved in morphology (type II). There is severe acromioclavicular joint osteoarthritis. There is mild subacromial/subdeltoid bursitis. Rotator cuff: There is severe supraspinatus and infraspinatus tendinopathy. Teres minor tendon is normal. There is mild subscapularis tendinopathy. There is no asymmetric fatty atrophy of the rotator cuff muscle moreira ies. Biceps tendon and glenoid labrum: Biceps tendon is in bicipital groove. There is moderate intra-articular biceps tendinopathy. There is degeneration of the glenoid labrum without well-defined tear. Fluid: There is a small glenohumeral joint effusion. Bones/cartilage: There is deep partial-thickness cartilage loss of superior and central glenoid. There is deep partial -thickness cartilage loss of humeral head. IMPRESSION: 1. Severe rotator cuff tendinopathy. No tear. 2. Moderate glenohumeral joint chondrosis. 3. Severe acromioclavicular joint osteoarthritis. 4. Small glenohumeral joint effusion. 5. Mild subacromial/subdeltoid bursitis. 6. Moderate intra-articular biceps tendinopathy. Reviewed, dictated and finalized at location A. GANG SUPERVISOR
== END 2024-04-15 09:34 | disposition home or self-care (01) ==
PROVIDERS: PCP Family Medicine
DX: M25.512 Pain in left shoulder (principal); M67.812 Other specified disorders of synovium, left shoulder; M94.212 Chondromalacia, left shoulder; M19.012 Primary osteoarthritis, left shoulder; M25.412 Effusion, left shoulder; M75.52 Bursitis of left shoulder
CPT/HCPCS: 73221

== ENCOUNTER 2025-01-05 15:07 | Outpatient (CLI) | payer MEDICARE, SELFPAY ==
--- OUTSIDE RECORDS SUMMARY | 2025-01-05 15:09 | XMS_ITS | Encounter Summary ---
Author Organization [facility] Address [address] [place] [address] Care Team Providers Care Marine Engine Machinist Name Role Phone Benjamín Santoyo DO Primary Care Provider [phone] Encounter Details Date Type Department Care Team (Late st Contact Info) Description 04/28/2024 [employer] Message Enc [place] [id number] Glo Mason MD Visit Follow Up Social History Tobacco Use Types Packs/Day Years Used Date Smoking Tobacco: Never Smokeless Tobacco: Never Alcohol Use Standard Drinks/Week Comments Never 0 (1 standard drink = 0.6 oz pur e alcohol) Comments Unknown Sex and Gender Information Value Date Recorded Sex Assigned at Not on file Legal Sex Female 10:03 PM MEDICAL TERMINOLOGIST Gender Identity Not on file Sexual Orientation Not on file documented as of this encounter Plan of Treatment Not on file documented as of this encounter Visit Diagnoses Not on filedocumented in this encounter Care Teams Marine Engine Machinist Relationship Specialty Start Date End Date Benjamín Santoyo DO [address] [place] [address] PCP - General FAMILY PRACTICE 11/08/21 documented as of this encounter
--- OUTSIDE RECORDS SUMMARY | 2025-01-05 15:09 | XMS_ITS | Encounter Summary ---
Author Organization [facility] Address [address] [place] [address] Care Team Providers Care Life Skills Worker Name Role Phone Benjamín Santoyo DO Primary Care Provider [phone] Encounter Details Date Type Department Care Team (Late st Contact Info) Description 06/25/2024 [employer] Message Enc [address] [address] Natalie, [facility] Provider Reschedule apt Social History Tobacco Use Types Packs/Day Years Used Date Smoking Tobacco: Never Smokeless Tobacco: Never Alcohol Use Standard Drinks/Week Comments Never 0 (1 standard drink = 0.6 oz pur e alcohol) Comments Unknown Sex and Gender Information Value Date Recorded Sex Assigned at Not on file Legal Sex Female 10:03 PM CORE INSPECTOR Gender Identity Not on file Sexual Orientation Not on file documented as of this encounter Plan of Treatment Not on file documented as of this encounter Visit Diagnoses Not on filedocumented in this encounter Care Teams Life Skills Worker Relationship Specialty Start Date End Date Benjamín Santoyo DO [address] [place] [address] PCP - General FAMILY PRACTICE 11/08/21 documented as of this encounter
--- OUTSIDE RECORDS SUMMARY | 2025-01-05 15:09 | XMS_ITS | Encounter Summary ---
Author Organization [facility] Address [address] [place] [address] Care Team Providers Care Brusher Machine Name Role Phone Benjamín Santoyo DO Primary Care Provider [phone] Encounter Details Date Type Department Care Team (Late st Contact Info) Description 10/31/2018 Abstract [facility] CONVERSION [address] [place] [address] , Generic Conversion, Social History Tobacco Use Types Packs/Day Years Used Date Smoking Tobacco: Never Assessed Comments Unknown Sex and Gender Information Value Date Recorded Sex Assigned at Not on file Legal Sex Female 10:03 PM OIL WELL PUMPER Gender Identity Not on file Sexual Orientation Not on file documented as of this encounter Plan of Treatment Not on file documented as of this encounter Visit Diagnoses Not on filedocumented in this encounter Care Teams Brusher Machine Relationship Specialty Start Date End Date Benjamín Santoyo DO [address] [place] [address] PCP - General FAMILY PRACTICE 11/08/21 documented as of this encounter
--- OUTSIDE RECORDS SUMMARY | 2025-01-05 15:10 | XMS_ITS | Encounter Summary ---
Author Organization [facility] Address [address] [place] [address] Care Team Providers Care Fingernail Sculpturer Name Role Phone Benjamín Santoyo DO Primary Care Provider [phone] Encounter Details Date Type Department Care Team (Late st Contact Info) Description 04/15/2022 [employer] Message Enc [address] [address] Shi Shoemaker, [facility] [address] [place] [address] [place] [phone] Visit Follow Up Social History Tobacco Use Types Packs/Day Years Used Date Smoking Tobacco: Never Smokeless Tobacco: Never Alcohol Use Standard Drinks/Week Comments Never 0 (1 standard drink = 0.6 oz pur e alcohol) Comments Unknown Sex and Gender Information Value Date Recorded Sex Assigned at Not on file Legal Sex Female 10:03 PM NETWORK SOLUTIONS ARCHITECT Gender Identity Not on file Sexual Orientation Not on file COVID-19 Exposure Response Date Recorded In the last 10 days, have yo u been in contact with someone who was confirmed or suspected to have Coronavirus/COVID-19? No / Unsure 04/15/2022 1:19 PM NETWORK SOLUTIONS ARCHITECT documented as of this encounter Plan of Treatment Not on file documented as of this encounter Visit Diagnoses Not on filedocumented in this encounter Care Teams Fingernail Sculpturer Relationship Specialty Start Date End Date Benjamín Santoyo DO [address] [place] [address] PCP - General FAMILY PRACTICE 11/08/21 documented as of this encounter
--- OUTSIDE RECORDS SUMMARY | 2025-01-05 15:10 | XMS_ITS | Clinical Summary ---
Author Organization [facility] Address [address] [place] [address] Care Team Providers Care Condenser Operator Name Role Phone Benjamín Santoyo DO Primary Care Provider Allergies No known active allergies Medications TRULICITY 0.75 MG/0.5ML injection Inject 1 mL into the skin as needed. 09/27/2021 Active FLUoxetine (PROZAC) 40 MG capsule Take 1 capsule (40 mg total) by mouth daily. Active metFORMIN (GLUCOPHAGE) 500 MG tablet Take 1 tablet (500 mg total) by mouth 2 (two) times daily with meals. Active atorvastatin (LIPITOR) 10 MG tablet Take 1 tablet (10 mg total) by mouth nightly at bedtime. Active buPROPion SR (WELLBUTRIN SR) 150 MG 12 hr tablet 04/23/2024 Active FARXIGA 10 MG tablet 04/23/2024 Active OLANZapine (ZYPREXA) 5 MG tablet 04/05/2024 Active omeprazole (PRILOSEC) 40 MG capsule 04/27/2024 Active ziprasidone (GEODON) 40 MG capsule 04/27/2024 Active Active Problems Problem Noted Date Diagnosed Date Tendinopathy of left rotator cuff 04/28/2024 Primary osteoarthritis of fi rst carpometacarpal joint of left hand 04/15/2022 Closed nondisplaced fracture of other part of third metacarpal bone of left hand with routine healing, subsequent encounter 11/08/2021 Family History Medical History Relation Comments Broken Bones Brother 1 Heart Attack Mother Cancer Sister 3 Relation Status Comments Brother 1 Alive Brother 2 Father Mother Sister 1 Alive Sister 2 Alive Sister 3 Alive Sister 4 Sister 5 Social History Tobacco Use Types Packs/Day Years Used Date Smoking Tobacco: Never Smokeless Tobacco: Never Tobacco Cessation:Counseling Given: Not Answered Alcohol Use Standard Drinks/Week Comments Never 0 (1 standard drink = 0.6 oz pur e alcohol) Comments Unknown Sex and Gender Information Value Date Recorded Sex Assigned at Not on file Legal Sex Female 10:03 PM ABORIGINAL HOME SCHOOL LIAISON OFFICER Gender Identity Not on file Sexual Orientation Not on file Last Filed Vital Signs Vital Sign Reading Time Taken Comments Blood Pressure 138/77 04/02/2023 10:13 AM ABORIGINAL HOME SCHOOL LIAISON OFFICER Pulse 100 04/02/2023 12:36 PM ABORIGINAL HOME SCHOOL LIAISON OFFICER Temperature 36.6 C (97.9 F) 04/02/2023 12:36 PM ABORIGINAL HOME SCHOOL LIAISON OFFICER Respiratory Rate 16 04/02/2023 12:36 PM ABORIGINAL HOME SCHOOL LIAISON OFFICER Oxygen Saturation 95% 04/02/2023 12:36 PM ABORIGINAL HOME SCHOOL LIAISON OFFICER Inhaled Oxygen Concentration - - Weight 77.1 kg (170 lb) 04/28/2024 10:20 AM ABORIGINAL HOME SCHOOL LIAISON OFFICER Height 157.5 cm (5' 2) 04/28/2024 10:20 AM ABORIGINAL HOME SCHOOL LIAISON OFFICER Body Mass Index 31.09 04/28/2024 10:20 AM ABORIGINAL HOME SCHOOL LIAISON OFFICER Plan of Treatment Health Maintenance Due Date Last Done Comments Cervical Cancer Screening Pa p Smear (Age 30 to 64) Every 3 Years 1964 Colorectal Cancer Screening Colonoscopy (10 Years) 1964 Annual Physical 1967 Hepatitis C 1982 Cervical Cancer Screening Pa p with HPV Testing (Age 30 to 64) Every 5 Years 1994 Cervical Cancer Screening wi th HPV 1994 Mammogram Screening 2004 Pneumococcal Vaccine: 50+ Years (1 of 1 - PCV) 2014 Zoster Vaccines (1 of 2) 2014 COVID-19 Vaccine (3 - 2023-2 5 season) 2024 10/24/2020, 10/03/2020 DTaP, Tdap and Td Vaccines ( 2 - Td or Tdap) 10/18/2025 10/19/2015 RSV Immunization or 60+ Years (1 - 1-dose 75+ series) 2039 Meningococcal B Vaccine Aged Out No l onger eligible based on patient's age to complete this topic Meningococcal Vaccine Aged Out No melina elias eligible based on patient's age to complete this topic RSV Immunizations Under 20 Months Aged Out No longer eligible b ased on patient's age to complete this topic Medical Devices Implanted Type Area Engine Wiper Device Identifier Shelf Expiration Date Model / Serial / Lot Screw Biomet 3.5 Self Tap Locking 18mm - [id number] Implanted:Qty: 4 on 04/02/2023 by Dede Rodriguez MD at [facility] Screw Right: [employer] [id number] / / N/A Screw Biomet 3.5 Self Tap Locking 22mm - [id number] Implanted:Qty: 1 on 04/02/2023 by Orville Dave MD at [facility] Screw Right: [employer] [id number] / / N/A 3.[address] Implanted:Qty: 1 on 04/02/2023 by Dede Rodriguez MD at [facility] Right: [employer] [id number] / / N/A 3.5mm Washer Implanted:Qty: 1 on 04/02/2023 by Dede Rodriguez MD at [facility] Right: [employer] [id number] / / N/A Description:Per Jude Obednor, Alfonso # [id number] 3.5 Locking Implanted:Qty: 1 on 04/02/2023 by Dede Rodriguez MD at [facility] Right: [employer] / / N/A Olecranon Plate 10 Hole Implanted:Qty: 1 on 04/02/2023 by Dede Rodriguez MD at [facility] Right: [employer] [id number] / / N/A Description:Per Jude Gagnor, Alfonso # [id number] Explanted Type Area Engine Wiper Device Identifier Shelf Expiration Date Model / Serial / Lot Drill Bit 2.7mm Calibrated - [id number] Explanted:Qty: 1 on 04/02/2023 by Dede Rodriguez MD at [facility] Drill Right: [employer] [id number] / / N/A Screw Biomet 3.5 Self Tap Locking 22mm - [id number] Explanted:Qty: 1 on 04/02/2023 by Dede Rodriguez MD at [facility] Screw Right: [employer] [id number] / / N/A Screw Biomet 3.5 Self Tap Locking 28mm - [id number] Explanted:Qty: 1 on 04/02/2023 by Orville Dave MD at [facility] Screw Right: [employer] [id number] / / N/A 3.[address] Explanted:Qty: 1 on 04/02/2023 by Dede Rodriguez MD at [facility] Right: [employer] [id number] / / N/A Kwire Explanted:Qty: 3 on 04/02/2023 by Dede Rodriguez MD at [facility] Right: [employer] [id number] / / N/A Description:Alfonso Adams # [id number] Insurance [facility] MEDICAID Care Teams Condenser Operator Relationship Specialty Start Date End Date Benjamín Santoyo DO [address] [place] [address] PCP - General FAMILY PRACTICE 11/08/21
[2025-01-05 15:20] LABS: Hematocrit 38.0 % (35.0-49.0); Hemoglobin 11.8 g/dL (12.0-15.0); Immature Granulocyte Percent A 0.3 % (0.0-0.0); Lymphocytes Absolute Auto 1.78 K/mm3 (1.10-4.50); Mean Corpuscular HGB Conc 31.1 g/dL (32-36); Mean Corpuscular Hemoglobin 27.8 pg (27.0-31.0); Mean Corpuscular Volume 89.6 fL (78.0-102.0); Nucleated Red Blood Cells Absolute Auto 0.00 K/mm3 (0.00-0.00); Nucleated Red Blood Cells Perc 0.0 % (0-0.0); Platelet Count Result 332 K/mm3 (150-420); Red Blood Count 4.24 M/mm3 (4.20-5.40); White Blood Count 5.8 K/mm3 (4.8-10.8)
[2025-01-05 15:40] LABS: MALB Creatinine Ratio 19.8 mg/g (0-30)
[2025-01-05 15:58] LABS: Hemoglobin A1C 6.0 % (<5.7)
[2025-01-05 16:23] LABS: Alanine Aminotransferase 48 U/L (6-35); Albumin Level 4.4 g/dL (3.5-5.1); Alkaline Phosphatase 133 U/L (38-126); Anion Gap 6 mmol/L (4-12); Aspartate Amino Transferase 55 U/L (14-36); Bilirubin,Total 1.1 mg/dL (0.2-1.3); Blood Urea Nitrogen 21 mg/dL (7-17); Calcium 9.7 mg/dL (8.4-10.2); Carbon Dioxide 26 mmol/L (22-30); Chloride 109 mmol/L (98-107); Cholesterol 180 mg/dL (0-200); Estimated Glomerular Filt Rate 55; Glucose 101 mg/dL (65-110); HDL Direct 72 mg/dL; Osmolality Calculated 295 mOsm/kg (285-295); Potassium 4.4 mmol/L (3.4-5.0); Sodium 141 mmol/L (137-145); Total Protein 6.7 g/dL (6.3-8.2); Triglycerides 217 mg/dL (<150)
== END 2025-01-05 15:08 | disposition home or self-care (01) ==
PROVIDERS: Nurse Practitioner Family; PCP Family Medicine; Visit Provider Family Medicine
DX: F41.1 Generalized anxiety disorder (principal); E11.9 Type 2 diabetes mellitus without complications; Z79.899 Other long term (current) drug therapy; R74.01 Elevation of levels of liver transaminase levels
CPT/HCPCS: 36415; 80053; 80061; 80074; 82043; 82306; 83036; 85025

== ENCOUNTER 2025-01-12 08:19 | Outpatient (CLI) | payer MEDICARE, MEDICAID, SELFPAY ==
--- NOTE | ~2025-01-12 | US_ITS ---
Limited Abdominal Sonogram: Real-time sonographic imaging of the right upper quadrant was performed. Clinical History: Abnormal liver and adrenals Findings: The liver appears mildly echogenic, with no evidence of mass lesion or bile duct dilatation. Main portal vein demonstrates normal direction of flow. The gallbladder is well distended, and appears normal with no evidence of gallstone or wall thickening. The common bile duct measures 2 mm. The visualized pancreas, aorta, and IVC are unremarkable. Impression: Suspected mild diffuse fatty infiltration of liver. Reviewed, dictated and finalized at location M. Impression: Suspected mild diffuse fatty infiltration of liver.
--- OUTSIDE RECORDS SUMMARY | 2025-01-12 08:28 | XMS_ITS | Encounter Summary ---
Author Organization [facility] Address [address] [place] [address] Care Team Providers Care Printer Technician Name Role Phone Benjamín Santoyo DO Primary Care Provider [phone] Encounter Details Date Type Department Care Team (Late st Contact Info) Description 06/25/2024 [employer] Message Enc [address] [address] Natalie, [facility] Provider Reschedule apt Social History Tobacco Use Types Packs/Day Years Used Date Smoking Tobacco: Never Smokeless Tobacco: Never Alcohol Use Standard Drinks/Week Comments Never 0 (1 standard drink = 0.6 oz pur e alcohol) Comments Unknown Sex and Gender Information Value Date Recorded Sex Assigned at Not on file Legal Sex Female 10:03 PM SAFETY COUNSELOR Gender Identity Not on file Sexual Orientation Not on file documented as of this encounter Plan of Treatment Not on file documented as of this encounter Visit Diagnoses Not on filedocumented in this encounter Care Teams Printer Technician Relationship Specialty Start Date End Date Benjamín Santoyo DO [address] [place] [address] PCP - General FAMILY PRACTICE 11/08/21 documented as of this encounter
--- OUTSIDE RECORDS SUMMARY | 2025-01-12 08:28 | XMS_ITS | Encounter Summary ---
Author Organization [facility] Address [address] [place] [address] Care Team Providers Care Aircraft Ordnance Technician Name Role Phone Benjamín Santoyo DO Primary Care Provider [phone] Encounter Details Date Type Department Care Team (Late st Contact Info) Description 04/28/2024 [employer] Message Enc [place] [phone] Glo Mason MD Visit Follow Up Social History Tobacco Use Types Packs/Day Years Used Date Smoking Tobacco: Never Smokeless Tobacco: Never Alcohol Use Standard Drinks/Week Comments Never 0 (1 standard drink = 0.6 oz pur e alcohol) Comments Unknown Sex and Gender Information Value Date Recorded Sex Assigned at Not on file Legal Sex Female 10:03 PM WATER PUMP ASSEMBLER Gender Identity Not on file Sexual Orientation Not on file documented as of this encounter Plan of Treatment Not on file documented as of this encounter Visit Diagnoses Not on filedocumented in this encounter Care Teams Aircraft Ordnance Technician Relationship Specialty Start Date End Date Benjamín Santoyo DO [address] [place] [address] PCP - General FAMILY PRACTICE 11/08/21 documented as of this encounter"
--- OUTSIDE RECORDS SUMMARY | 2025-01-12 08:28 | XMS_ITS | Encounter Summary ---
Author Organization [facility] Address [address] [place] [address] Care Team Providers Care Water Truck Driver Name Role Phone Benjamín Santoyo DO Primary Care Provider [phone] Encounter Details Date Type Department Care Team (Late st Contact Info) Description 04/15/2022 [employer] Message Enc [address] [address] Shi Shoemaker, [facility] [address] [place] [address] [place] [phone] Visit Follow Up Social History Tobacco Use Types Packs/Day Years Used Date Smoking Tobacco: Never Smokeless Tobacco: Never Alcohol Use Standard Drinks/Week Comments Never 0 (1 standard drink = 0.6 oz pur e alcohol) Comments Unknown Sex and Gender Information Value Date Recorded Sex Assigned at Not on file Legal Sex Female 10:03 PM MAXILLOFACIAL SURGEON Gender Identity Not on file Sexual Orientation Not on file COVID-19 Exposure Response Date Recorded In the last 10 days, have yo u been in contact with someone who was confirmed or suspected to have Coronavirus/COVID-19? No / Unsure 04/15/2022 1:19 PM MAXILLOFACIAL SURGEON documented as of this encounter Plan of Treatment Not on file documented as of this encounter Visit Diagnoses Not on filedocumented in this encounter Care Teams Water Truck Driver Relationship Specialty Start Date End Date Benjamín Santoyo DO [address] [place] [address] PCP - General FAMILY PRACTICE 11/08/21 documented as of this encounter
--- OUTSIDE RECORDS SUMMARY | 2025-01-12 08:28 | XMS_ITS | Clinical Summary ---
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 Gender Identity Not on file Sexual Orientation Not on file Last Filed Vital Signs Vital Sign Reading Time Taken Comments Blood Pressure 138/77 04/02/2023 10:13 AM OIL WELL SHOOTER Pulse 100 04/02/2023 12:36 PM OIL WELL SHOOTER Temperature 36.6 C (97.9 F) 04/02/2023 12:36 PM OIL WELL SHOOTER Respiratory Rate 16 04/02/2023 12:36 PM OIL WELL SHOOTER Oxygen Saturation 95% 04/02/2023 12:36 PM OIL WELL SHOOTER Inhaled Oxygen Concentration - - Weight 77.1 kg (170 lb) 04/28/2024 10:20 AM OIL WELL SHOOTER Height 157.5 cm (5' 2) 04/28/2024 10:20 AM OIL WELL SHOOTER Body Mass Index 31.09 04/28/2024 10:20 AM OIL WELL SHOOTER Plan of Treatment Health Maintenance Due Date [...] this topic Medical Devices Implanted Type Area Nurse Ldr Device Identifier Shelf Expiration Date Model / Serial / Lot Screw Biomet 3.5 Self Tap Locking 18mm - [id number] Implanted:Qty: 4 on 04/02/2023 by Dede Rodriguez MD at [facility] Screw Right: [employer] [id number] / / N/A Screw Biomet 3.5 Self Tap Locking 22mm - [id number] Implanted:Qty: 1 on 04/02/2023 by Orville Dave MD at [facility] Screw Right: [employer] [id number] / / N/A 3.[address] Implanted:Qty: 1 on 04/02/2023 by Dede Rodriguez MD at [facility] Right: [employer] [id number] / / N/A 3.5mm Washer Implanted:Qty: 1 on 04/02/2023 by Dede Rodriguez MD at [facility] Right: [employer] 8512-18-000 / / N/A Description:Per Jude Obednor, Alfonso # [id number] 3.5 Locking Implanted:Qty: 1 on 04/02/2023 by Dede Rodriguez MD at [facility] Right: [employer] / / N/A Olecranon Plate 10 Hole Implanted:Qty: 1 on 04/02/2023 by Dede Rodriguez MD at [facility] Right: [employer] [id number] / / N/A Description:Per Jude Gagnor, Alfonso # [id number] Explanted Type Area Nurse Ldr Device Identifier Shelf Expiration Date Model / Serial / Lot Drill Bit 2.7mm Calibrated - [id number] Explanted:Qty: 1 on 04/02/2023 by Dede Rodriguez MD at [facility] Drill Right: [employer] [id number] / / N/A Screw Biomet 3.5 Self Tap Locking 22mm - [id number] Explanted:Qty: 1 on 04/02/2023 by Dede Rodriguez MD at [facility] Screw Right: [employer] [id number] / / N/A Screw Biomet 3.5 Self Tap Locking 28mm - [id number] Explanted:Qty: 1 on 04/02/2023 by Orville Dave MD at [facility] Screw Right: [employer] [id number] / / N/A 3.[address] Explanted:Qty: 1 on 04/02/2023 by Dede Rodriguez MD at [facility] Right: [employer] [id number] / / N/A Kwire Explanted:Qty: 3 on 04/02/2023 by Dede Rodriguez MD at [facility] Right: [employer] [id number] / / N/A Description:Alfonso Adams # [id number] Insurance [facility] MEDICAID Care Teams Farm Contractor Buyer Relationship Specialty Start Date End Date Benjamín Santoyo DO [address] [place] [address] PCP - General FAMILY PRACTICE 11/08/21
--- OUTSIDE RECORDS SUMMARY | 2025-01-12 08:28 | XMS_ITS | Encounter Summary ---
Author Organization [facility] Address [address] [place] [address] Care Team Providers Care Field Supervisor Name Role Phone Benjamín Santoyo DO Primary Care Provider [phone] Encounter Details Date Type Department Care Team (Late st Contact Info) Description 10/31/2018 Abstract [facility] CONVERSION [address] [place] [address] , Generic Conversion, Social History Tobacco Use Types Packs/Day Years Used Date Smoking Tobacco: Never Assessed Comments Unknown Sex and Gender Information Value Date Recorded Sex Assigned at Not on file 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
== END 2025-01-12 08:20 | disposition home or self-care (01) ==
LOC: CHSIMG 08:22
PROVIDERS: PCP Family Medicine; Visit Provider Family Medicine
DX: R74.01 Elevation of levels of liver transaminase levels (principal); K76.0 Fatty (change of) liver, not elsewhere classified
CPT/HCPCS: 76705